=== PATIENT | male | born 1930 | race Caucasian/White ===

== ENCOUNTER → 2019-05-05 | Day surgery (SDC) | payer MEDICARE, BC ==
[~2019-05-05] MED LIST: SODIUM CHLORIDE 0.9% 500 ML 500 ML in EMPTY BAG 1 BAG IV PRN
--- NOTE | 2019-05-05 10:35 | US ---
EXAMINATION TYPE: US chest DATE OF EXAM: 05/05/2019 COMPARISON: NONE CLINICAL HISTORY: J90 PLEURAL EFFUSION. Pleural effusion TECHNIQUE: Targeted ultrasound of the posterior lower bilateral hemithoraces EXAM MEASUREMENTS: Right Pleural Effusion pocket size: unable to identify any sizable fluid collection at this time Left Pleural Effusion pocket size: unable to identify any sizable fluid collection at this time Right side NOT marked for possible thoracentesis outside the dept. Left side NOT marked for possible thoracentesis outside the dept. Pulmonologists are able to review the images in the patient?s EMR. IMPRESSIONS: No identifiable fluid atThis time.
== END ==
LOC: PROCWHC3 09:54
PROVIDERS: ATTEND Internal Medicine Critical Care Medicine
DX: J90 Pleural effusion, not elsewhere classified (principal); Z88.8 Allergy status to other drugs, medicaments and biological substances
CPT/HCPCS: 76604